=== PATIENT | female | born 1995 | race Caucasian/White ===

== ENCOUNTER 2022-04-19 15:54 | Emergency (ER) | payer OTHER ==
[2022-04-19] MEDS ORDERED: IBUPROFEN 400 MG TABLET (FP) PO ONE (16:05)
[2022-04-19 16:09] VITALS: BP 132/85; PULSE 98; RESP 18; TEMP 99; BMI 21.1
[2022-04-19] MEDS ORDERED: ACETAMINOPHEN 325 MG TABLET (FP) PO ONE (16:22)
[2022-04-19] MEDS ORDERED: ACETAMINOPHEN 325 MG TABLET (FP) ONE (16:23)
== END 2022-04-19 19:00 | disposition home or self-care (01) ==
LOC: FER 15:54
DX: M25.572 Pain in left ankle and joints of left foot (principal)
CPT/HCPCS: 73610-TC-LT-FY; 73630-TC-LT; 99283-25